=== PATIENT | male | born 1955 | race Caucasian/White ===

== ENCOUNTER 2019-06-29 09:16 | Inpatient (IN) | payer OTHER, MEDICAID ==
[~2019-06-29] VITALS: Ht 172.7 cm; Wt 75.8 kg
[~2019-06-29 09:16] MED LIST: ANAPROX DS550 MG PO; ATARAX25 MG PO; BACTRIM DS 8001 TA1 PO; BUSPAR5 MG PO; CARVEDILOL6.25 MG; CARVEDILOL6.25 MG PO; CHOLESTEROL MED; CIPROFLOXACIN500 MG PO; CLINDAMYCIN150 MG PO; CLOPIDOGREL75 MG; DOXYCYCLINE MO100 MG PO; LANTUS; LANTUS INSULIN; LISINOPRIL5 MG PO; MOTRIN800 MG PO; NOVOLOG; PLAVIX75 MG PO; SEPTRA DS 800 M1 TAB PO; SIMVASTATIN40 MG PO; VICODIN 5/500 505 MG PO
[2019-06-29 09:38] VITALS: BP 148/63
[2019-06-29 10:53] LABS: BASO % 0.3 % (0.0-1.0); EOS # 0.2 10*3/uL (0.0-0.4); EOS % 2.5 % (1.0-4.0); HEMATOCRIT 33.1 % (42.0-52.0); LYMPH # 1.5 10*3/uL (1.3-4.4); LYMPH % 18.3 % (27.0-41.0); MEAN CELL VOLUME 91.4 fl (80.0-94.0); MEAN CORPUSCULAR HGB 30.7 pg (27.0-31.0); MEAN CORPUSCULAR HGB CONC 33.5 g/dl (33.0-37.0); MEAN PLATELET VOLUME 10.8 fl (9.6-12.3); MONO # 0.5 10*3/uL (0.1-1.0); MONO % 6.6 % (3.0-9.0); NEUT # 5.7 10*3/uL (2.3-7.9); NEUT % 71.9 % (47.0-73.0); PLATELET COUNT AUTOMATED 220 10*3/uL (130-400); RED BLOOD COUNT 3.62 10*6/uL (4.50-5.90); WHITE BLOOD COUNT 7.9 10*3/uL (4.8-10.8)
[2019-06-29 11:10] LABS: ALBUMIN 1.8 gm/dl (3.1-4.5); ALKALINE PHOSPHATASE 86 U/L (45-117); BUN 22 mg/dl (7-24); CHLORIDE 101 mmol/L (98-107); CREATININE 1.25 mg/dL (0.70-1.30); POTASSIUM 4.1 mmol/L (3.5-5.1); SGOT/AST 12 IU/L (3-35); SGPT/ALT 15 U/L (12-78); SODIUM 136 mmol/L (136-145); TOTAL PROTEIN 5.7 gm/dL (6.4-8.2)
[2019-06-29 11:15] LABS: TROPONIN I < 0.015 ng/ml (<0.045)
--- NOTE | 2019-06-29 11:22 | NUR ---
BREAKFAST TRAY PROVIDED.
--- NOTE | 2019-06-29 12:14 | NUR ---
PT USED URINAL AND FINISHED ALL OF MEAL TRAY.
[2019-06-29 12:42] VITALS: BP 140/70
[2019-06-29 12:49] LABS: BILIRUBIN NEGATIVE (NEGATIVE); BLOOD 3+ (NEGATIVE); CLARITY SL CLOUDY (CLEAR); COLOR YELLOW (YELLOW); GLUCOSE 3+ (NEGATIVE); KETONE NEGATIVE (NEGATIVE); SPECIFIC GRAVITY 1.015 (1.005-1.030)
[2019-06-29 12:50] LABS: LEUKO ESTERASE NEGATIVE (NEGATIVE); NITRITE POSITIVE (NEGATIVE); PH 6.5 (5.0-9.0); UROBILINOGEN 0.2 E.U./dl (0.2-1.0)
[2019-06-29 12:59] LABS: BACTERIA 4+; MUCOUS TRACE; RBC 16-20 rbc/hpf (0-2); WBC 51-100 wbc/hpf (0-5)
[2019-06-29 13:30] VITALS: BP 158/87
--- NOTE | 2019-06-29 13:30 | NUR ---
A 63, admitted to , under the services of NANCI Chiu DO with a diagnosis of HYPERGLYCEMIA. Chief complaint is SWELLING 2-3+ PITTING, HYPERGLYCEMIA, MUNBNESS IN HEANDS. Patient arrived via bed from ER. Monitor applied. Initial assessment completed. Vital signs taken and recorded. NANCI CHIU DO notified of admission to the unit. Orders received. See assessment for past medical history, medications and allergies. Patient and/or family oriented to unit. [facility] visitation policy reviewed. Clothing/patient valuable form completed. RAUL KNIGHT
--- NOTE | 2019-06-29 15:02 | NUR ---
PHYSICAL THERAPY José Luis received pt just admitted from the ED this afternoon for BLE edema with elevated blood sugars and hand numbness. Pt for further testing and awaiting assessment/H&P by admitting MD will follow Padmini Breaux PT
--- NOTE | 2019-06-29 15:30 | NUR ---
NOTIFIED PATRICIA BEEBE OF PATIENT'S BLOOD GLUCOSE 507; ORDER OBTAINED TO GIVEN 20 UNITS.
[2019-06-29 16:00] VITALS: BP 142/75
[2019-06-29 20:00] VITALS: BP 148/88
--- NOTE | 2019-06-29 23:09 | NUR ---
PATIENT ASKING FOR NEUROTIN. STATES HE USED TO TAKE IT FOR HIS LEGS. NOTIFIED DR. ARCHULETA.
--- NOTE | 2019-06-29 23:30 | NUR ---
PATIENT VOICED NO COMPLAINTS AT THIS TIME. NO OVERT DISTRESS NOTED. RESP ARE EASY & REGULAR ON ROOM AIR. CALL LIGHT WITHIN REACH
[2019-06-30] VITALS: BP 141/77
--- NOTE | 2019-06-30 04:00 | NUR ---
PATIENT ASLEEP, EYES CLOSED. NO DISTRESS NOTED. CALL LIGHT WITHIN REACH
[2019-06-30 06:18] LABS: BASO % 0.4 % (0.0-1.0); EOS # 0.2 10*3/uL (0.0-0.4); EOS % 2.5 % (1.0-4.0); HEMATOCRIT 32.8 % (42.0-52.0); LYMPH # 1.9 10*3/uL (1.3-4.4); LYMPH % 21.9 % (27.0-41.0); MEAN CELL VOLUME 92.1 fl (80.0-94.0); MEAN CORPUSCULAR HGB 30.1 pg (27.0-31.0); MEAN CORPUSCULAR HGB CONC 32.6 g/dl (33.0-37.0); MONO # 0.6 10*3/uL (0.1-1.0); NEUT # 5.8 10*3/uL (2.3-7.9); PLATELET COUNT AUTOMATED 231 10*3/uL (130-400); RED BLOOD COUNT 3.56 10*6/uL (4.50-5.90); RED CELL DISTRI WIDTH 13.1 % (0-14.5); WHITE BLOOD COUNT 8.5 10*3/uL (4.8-10.8)
[2019-06-30 06:48] LABS: ALBUMIN 1.6 gm/dl (3.1-4.5); BUN 23 mg/dl (7-24); CHLORIDE 101 mmol/L (98-107); CHOLESTEROL 210 mg/dL (<200); POTASSIUM 3.9 mmol/L (3.5-5.1); SODIUM 138 mmol/L (136-145)
[2019-06-30 06:59] LABS: ALKALINE PHOSPHATASE 71 U/L (45-117); CREATININE 1.22 mg/dL (0.70-1.30); FREE T4 0.98 ng/dl (0.76-1.46); HDL CHOLESTEROL 49 mg/dl (40-60); LDL CHOLESTEROL 126 mg/dL (9-159); PREALBUMIN 15 mg/dl (20-40); SGOT/AST 9 IU/L (3-35); SGPT/ALT 14 U/L (12-78); TOTAL PROTEIN 5.3 gm/dL (6.4-8.2); TRIGLYCERIDES 177 mg/dl (<150); VLDL CHOLESTEROL 35 mg/dL (6-40)
[2019-06-30 07:34] LABS: VITAMIN D, 25-HYDROXY 12.4 ng/mL (30-100)
[2019-06-30 08:00] VITALS: BP 122/64
--- NOTE | 2019-06-30 08:03 | NUR ---
DR. KURTZ IN TO SEE PATIENT RE: PLAN OF CARE, NEW MEDICATION ORDERS OBTAINED, SEE EMAR.
[2019-06-30] MEDS ORDERED: NEURONTIN800 MG PO (08:43)
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
[2019-06-30 10:30] LABS: BILIRUBIN NEGATIVE (NEGATIVE); CLARITY SL CLOUDY (CLEAR); COLOR YELLOW (YELLOW); GLUCOSE 3+ (NEGATIVE); KETONE NEGATIVE (NEGATIVE)
[2019-06-30 10:31] LABS: BLOOD 1+ (NEGATIVE); LEUKO ESTERASE 2+ (NEGATIVE); NITRITE NEGATIVE (NEGATIVE); PH 6.5 (5.0-9.0); UROBILINOGEN 0.2 E.U./dl (0.2-1.0)
[2019-06-30 10:36] LABS: BACTERIA 1+; WBC 51-100 wbc/hpf (0-5)
[2019-06-30 10:38] LABS: MUCOUS TRACE
[2019-06-30] MEDS ORDERED: CHOLESTEROL PILL PO (10:57)
[2019-06-30] MEDS ORDERED: COREG3.125 MG PO (10:59)
[2019-06-30 12:00] VITALS: BP 121/67
[2019-06-30 16:00] VITALS: BP 117/60
--- NOTE | 2019-06-30 19:30 | NUR ---
PATIENT VOICED NO COMPLAINTS. NO OVERT DISTRESS NOTED. RESP ARE EASY AND REGULAR. BED IS LOCKED IN LOWEST POSITION, CALL LIGHT WITHIN REACH
[2019-06-30 20:00] VITALS: BP 121/65
--- NOTE | 2019-06-30 20:56 | NUR ---
FINGERSTICK BGM OF 229. PATIENT TO RECEIVE 3 UNITS PER SSI
[2019-07-01] VITALS: BP 110/72
[2019-07-01 06:24] LABS: BASO % 0.5 % (0.0-1.0); EOS # 0.2 10*3/uL (0.0-0.4); EOS % 3.1 % (1.0-4.0); HEMATOCRIT 33.9 % (42.0-52.0); LYMPH # 2.2 10*3/uL (1.3-4.4); LYMPH % 28.8 % (27.0-41.0); MEAN CELL VOLUME 93.1 fl (80.0-94.0); MEAN CORPUSCULAR HGB 30.5 pg (27.0-31.0); MEAN CORPUSCULAR HGB CONC 32.7 g/dl (33.0-37.0); MEAN PLATELET VOLUME 10.4 fl (9.6-12.3); MONO # 0.6 10*3/uL (0.1-1.0); MONO % 7.7 % (3.0-9.0); NEUT # 4.6 10*3/uL (2.3-7.9); NEUT % 59.4 % (47.0-73.0); PLATELET COUNT AUTOMATED 226 10*3/uL (130-400); RED BLOOD COUNT 3.64 10*6/uL (4.50-5.90); RED CELL DISTRI WIDTH 13.3 % (0-14.5); WHITE BLOOD COUNT 7.8 10*3/uL (4.8-10.8)
[2019-07-01 06:54] LABS: POTASSIUM 3.7 mmol/L (3.5-5.1)
[2019-07-01 06:55] LABS: CREATININE 1.55 mg/dL (0.70-1.30)
[2019-07-01 08:00] VITALS: BP 103/59
--- NOTE | 2019-07-01 08:06 | NUR ---
IN TO SEE PATIENT THIS AM.
--- NOTE | 2019-07-01 11:00 | NUR ---
ASSISTED PATIENT OOB TO RR VIA WALKER. STEADY GAIT WITH ASSISTIVE DEVICE. WILL CONTINUE TO MONITOR.
--- NOTE | 2019-07-01 11:30 | NUR ---
BSG 447 AT THIS TIME. REPEAT TEST DONE PER POLICY. REPEAT STICK 473. 14 UNITS OF INSULIN GIVEN PER S/S. WILL NOTIFY PHYSICIAN.
--- NOTE | 2019-07-01 11:45 | NUR ---
NOTIFIED REGARDING BSG 447. WILL RECHECK BSG IN 1 HOUR.
[2019-07-01 12:00] VITALS: BP 113/72
--- NOTE | 2019-07-01 12:30 | NUR ---
BLOOD SUGAR RECHECKED AT THIS TIME BY MARY BETH WIGGINS. BSG 460. INFORMED. NEW ORDERS RECEIVED.
--- NOTE | 2019-07-01 13:05 | NUR ---
14 UNITS OF INSULIN GIVEN AGAIN PER S/S FOR BSG OF 460. WILL RECHECK BSG IN 1 HOUR.
[2019-07-01 16:00] VITALS: BP 110/56
--- NOTE | 2019-07-01 16:30 | NUR ---
BSG 280. 6 UNITS OF INSULIN GIVEN PER S/S. WILL CONTINUE TO MONITOR.
--- NOTE | 2019-07-01 19:05 | NUR ---
PATIENT VOICED NO COMPLAINTS. NO OVERT DISTRESS NOTED. CALL LIGHT WITHIN REACH
[2019-07-01 20:00] VITALS: BP 126/69
[2019-07-02] VITALS: BP 115/60
--- NOTE | 2019-07-02 01:40 | NUR ---
PATIENT RESTING QUIETLY IN BED, EYES CLOSED. NO DISTRESS NOTED. CALL LIGHT WITHI NREACH
[2019-07-02 07:20] LABS: CREATININE 1.65 mg/dL (0.70-1.30); POTASSIUM 4.2 mmol/L (3.5-5.1)
[2019-07-02 08:00] VITALS: BP 115/67
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
--- NOTE | 2019-07-02 09:50 | NUR ---
Occupational Therapy evaluation completed on five with full evaluation to follow. Recommend occupational therapy per plan of care and SNF upon discharge. Patient presented with decreased independence with ADLs, transfers, and decreased standing balance. Patient used the FWW during evaluation. He is currently living at a homeless retirement and has a "walking stick". Patient would benefit a WW and a SNF at discharge to maximize safety and independence. Thank you for this referral. Theodora Schwartz, OTR/L
--- NOTE | 2019-07-02 10:00 | NUR ---
Physical Therapy evaluation completed on fifth floor with full evaluation to follow. Recommend physical therapy per plan of care and SNF upon discharge. Pt is from [facility] [place] using a "walking stick" [facility] not have any other DME. Currently using FWW for balance/safety at time of eval, spoke w CM regarding concerns for discharge, recommending rehab. Thank you for this referral. Padmini Breaux PT
--- NOTE | 2019-07-02 10:23 | NUR ---
Nutritional Support Services Note: Appetite is good for meals. Heis eating 100% of all meals. He receives a cardiac diet with NCS and Ensure TID. Dx of severe protein calorie malnutrition. Pt lives in a [facility]. Hasn't taken meds for his DM in 2 years. BS is 304. Declined diet copies. Recommend Glucerna OS TID with meals. Will follow as needed. Ht.5'8 Wt.167# IBW [phone] Nila Sales Rdn Ld
--- NOTE | 2019-07-02 11:30 | NUR ---
case management talked with patient again regarding recommendation from physical therapy for patient to go to a short term longterm for rehab prior to returning home, educated patient that he would be able to receive 5 days of physical therapy and 24 hour nursing care. he did not want to go to a SNF, stated he would return to the snf with his dad, case management will follow
[2019-07-02 12:00] VITALS: BP 106/68
--- NOTE | 2019-07-02 12:30 | NUR ---
DR. ARCHULETA HAS ROUNDED.
--- NOTE | 2019-07-02 12:30 | NUR ---
DR. ARCHULETA HAS ROUNDED.
[2019-07-02] MEDS ORDERED: LIPITOR10 MG PO (15:49)
[2019-07-02] MEDS ORDERED: LISINOPRIL2.5 MG PO (15:49)
[2019-07-02] MEDS ORDERED: NEURONTIN800 MG PO (15:49)
[2019-07-02] MEDS ORDERED: CLOPIDOGREL75 MG PO (15:49)
[2019-07-02] MEDS ORDERED: LANTUS SOL100 UNIT/1 SQ (15:49)
[2019-07-02] MEDS ORDERED: NOVOLOG FL100 UNIT/2 SC (15:49)
[2019-07-02] MEDS ORDERED: CARVEDILOL3.125 MG PO (15:49)
[2019-07-02] MEDS ORDERED: ASPIRIN ADULT L81 M2 PO (15:49)
[2019-07-02] MEDS ORDERED: CIPROFLOXACIN500 M4 PO (15:49)
[2019-07-02 16:00] VITALS: BP 139/81
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
--- NOTE | 2019-07-02 17:30 | NUR ---
ALL MEDS ARE FILLED FROM PHARMACY, PATIENT DISCHARGED AND AWAITING RIDE.
--- NOTE | 2019-07-02 18:35 | NUR ---
PATIENT RIDE HOME IS HERE. DISCHARGED HOME WITH BELONGINGS.
[2019-07-04] MEDS ORDERED: HYDROCODONE-AC1 EAC1 PO (12:58)
[2019-07-04] MEDS ORDERED: NEURONTIN800 MG PO (13:51)
== END 2019-07-02 18:35 | disposition home or self-care (01) | DRG 637 ==
LOC: ED 09:16 → EDHOLD 12:41 → 5E 12:41
PROVIDERS: Internal Medicine; Registered Nurse; Student in an Organized Health Care Education/Training Program; ADMIT Emergency Medicine
DX: E11.65 Type 2 diabetes mellitus with hyperglycemia (principal); E43 Unspecified severe protein-calorie malnutrition; E78.5 Hyperlipidemia, unspecified; I11.0 Hypertensive heart disease with heart failure; I50.9 Heart failure, unspecified; R60.0 Localized edema; R80.9 Proteinuria, unspecified; I25.10 Atherosclerotic heart disease of native coronary artery without angina pectoris; Z95.5 Presence of coronary angioplasty implant and graft; Z82.49 Family history of ischemic heart disease and other diseases of the circulatory system; Z83.3 Family history of diabetes mellitus; I25.2 Old myocardial infarction; Z80.8 Family history of malignant neoplasm of other organs or systems; Z79.02 Long term (current) use of antithrombotics/antiplatelets; Z79.899 Other long term (current) drug therapy; Z91.19 Patient's noncompliance with other medical treatment and regimen; Z68.28 Body mass index [BMI] 28.0-28.9, adult